=== PATIENT | male | born 1955 | race Caucasian/White ===

== ENCOUNTER → 2018-10-31 | Outpatient (CLI) | payer OTHER ==
[~2018-10-31] VITALS: Ht 177.8 cm; Wt 104.0 kg
[~2018-10-31] MED LIST: ANASPAZ0.125 MG SUBLING; BENADRYL25 MG PO; CEPACOL SORE T1 EAC2 PO; DEMEROL IV PUSH; HUMAN GROWTH HORMONE SUBQ; HYDROCODON-ACE1 EAC7 PO; ISOSORBIDE MONO20 MG PO; LOPERAMIDE 2 MG2 M1 PO; MEDROLDOSEPACK PO; METOPROLOL SUCC50 MG PO; NOHOMEMEDICATIONS; NORCO 5-325 TA1 EACH PO; ONDANSETRON HCL4 M2 PO; OXYCODONE HCL 55 MG PO; OXYCODONE HCL15 MG PO; OXYCODONE HCL5 MG PO; OXYCONTIN20 M1 PO; PAXIL10 MG PO; PERCOCET 10-321 EAC1 PO; PERCOCET 5-3251 EACH PO; POTASSIUM20 PO; PREDNISONE50 MG PO; PROTONIX 20 MG20 M1 PO; ROXICODONE5 M2 PO; SLOW-MAG64 MG PO; TESTOSTERON100 MG/ML IM; TPN ELECTROLYTE20 M1 IV; ULTRAM 50MG TAB50 MG PO; VANCOMYCIN HCL 11 G2 IVPB; ZOFRAN ODT4 MG PO; ZOFRAN ODT4 MG SUBLING; ZOFRAN4 MG; ZOFRAN4 MG PO
--- NOTE | ~2018-10-31 | HPC ---
[facility] [place] [address] [place] [address] PAIN MANAGEMENT CONSULTATION Name: JUNI SERNA [id number] Admission: 10/31/18 Attend Phys: Nico Oseguera MD Discharge: Date of : 53 Report #: [id number] THIS REPORT FOR: //name// CC: Alvino Vargas DO NO PCP Nico Oseguera DATE OF SERVICE: 10/31/2018 Followup visit for chronic pain and management of intrathecal infusion pump. The patient is here today for management of chronic pain. I have been tapering his oral opioids as we adjust his intrathecal infusion pump. He still has about a month left on his pump before refill and he is here today for renewal of his oral medications. He is doing well. He seems much clear headed, more positive and upbeat, grateful for his intrathecal pump, which has provided dramatic improvement in his pain and function. He has reduced his oxycodone to 5 mg 3 times a day for breakthrough pain. On some days he may be able to use less and we continue to encourage the lowest effective dose. He has chronic abdominal pain related to Crohn disease and short gut syndrome. He feeds himself 7 days a week with nocturnal TPN through a program established by the [facility]. PHYSICAL EXAMINATION: He is pleasant, alert and oriented. He shows me pictures of his grandchildren and his dog. He seems to be much more comfortable and relaxed. His blood pressure is 117/75, heart rate 78, respirations 16. Chest is clear. Cardiac rhythm is regular. He moves from sitting to standing position, ambulates without difficulty. There is tenderness across the abdomen. Pain intensity is a 6/10. IMPRESSION: 1. 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 Crohn disease. 2. Management of intrathecal infusion pump. 3. Management of oral medications under terms of written opioid agreement. PLAN: I renewed his medication for 1 month. He will remain on oxycodone 5 mg 3 times daily for breakthrough pain. His intrathecal pump infusion of morphine will continue with unchanged at today's visit. I plan to see him back for the [facility] [address] [place] [address] PAIN MANAGEMENT CONSULTATION Name: KAREEMJUNI SHAHZAD [facility] [id number] Admission: 10/31/18 Attend Phys: Nico Oseguera MD Discharge: Date of : 53 Report #: [id number] refill in November. I provided him with additional months of oral medication. Hopefully, we can continue to reduce by at least 30% at next visit. By: [id number] Nico Oseguera MD /nt
[2018-10-31 13:07] VITALS: BP 117/75
--- NOTE | 2018-10-31 13:09 | NUR ---
Pain Clinic Assessment: 1. History of Osteoarthritis: Not Applicable History of Rheumatoid Arthritis: Not Applicable 2. Height: 5 ft. 10 in. 177.8 cm. Weight: 229.2 lb. oz. 103.965 kg. Patient's BMI: 32.9 3. Vital Signs: BP: 117/75 Pulse: 78 Resp: 16 Temp: 02 Sat: 95 ECG Mon: 4. Pain Intensity: 6 5. Fall Risk: Dizziness: N Needs help standing or walking: N Fallen in the last 3 months: N Fall risk comments: 6. Patient on Blood Thinner: None 7. History of Hypertension: Y 8. Opioid Therapy greater than 6 weeks: Y Opiate Contract Signed: 9. Risk Assessment Tool Provided: 10. Functional Assessment Tool: 11. Recreational Drug Use: Never Drug Type: Tobacco Use: Never Smoker Tobacco Type: Amount or Packs/day: How Many Years: Alcohol Use: No Frequency: Quant:
== END ==
LOC: PAIN 07:18
DX: K50.90 Crohn's disease, unspecified, without complications (principal); Z97.8 Presence of other specified devices; Z79.891 Long term (current) use of opiate analgesic; Z79.899 Other long term (current) drug therapy

== ENCOUNTER → 2018-12-01 | Outpatient (CLI) | payer OTHER ==
[~2018-12-01] VITALS: Ht 177.8 cm; Wt 104.6 kg
[~2018-12-01] MED LIST changes: +DIPHENHYDR50 MG/1 M1 INJECTION; +FLOMAX0.4 MG PO; +ONDANSETRON4 MG/2 M1 IM; +ROXICODONE5 MG PO; +TIROSINT150 MCG PO
[2018-12-01 10:52] VITALS: BP 154/97
--- NOTE | 2018-12-01 11:10 | NUR ---
Pain Clinic Assessment: 1. History of Osteoarthritis: Not Applicable History of Rheumatoid Arthritis: Not Applicable 2. Height: 5 ft. 10 in. 177.8 cm. Weight: 230.6 lb. oz. 104.600 kg. Patient's BMI: 33.1 3. Vital Signs: BP: 154/97 Pulse: 94 Resp: 20 Temp: 02 Sat: 100 ECG Mon: 4. Pain Intensity: 4-5 5. Fall Risk: Dizziness: N Needs help standing or walking: N Fallen in the last 3 months: N Fall risk comments: 6. Patient on Blood Thinner: None 7. History of Hypertension: Y 8. Opioid Therapy greater than 6 weeks: Y Opiate Contract Signed: 9. Risk Assessment Tool Provided: LOW-0 10. Functional Assessment Tool: 39 11. Recreational Drug Use: Never Drug Type: Tobacco Use: Never Smoker Tobacco Type: Amount or Packs/day: How Many Years: Alcohol Use: No Frequency: Quant:
--- NOTE | 2018-12-12 07:40 | HPC ---
[facility] [place] [address] [place] [address] PAIN MANAGEMENT CONSULTATION Name: JUNI SERNA Room #: REG [facility] Loretta.#: [id number] Admission: 12/01/18 ������������������ Attend Phys: Nico Oseguera MD Discharge: ������������������ Date of : 53 Report #: [id number] THIS REPORT FOR: //name// CC: Alvino Oseguera DATE OF SERVICE: 12/01/2018 Followup visit for management of intrathecal infusion pump refill and reprogramming. Chronic abdominal pain. Crohn's disease. The patient returns today for refill and reprogram of his intrathecal infusion pump and renewal for his breakthrough oxycodone, which we continue to taper. He is down to 2-3 tablets per day. He has had a substantial reduction in systemic opioids from his intrathecal pump and more importantly, he is exceptionally functional and much happier with the pain control that he is receiving from the intrathecal therapy. He scores his pain as a 4-5/10, although it is constant, throbbing and stabbing. It is not nearly as bad. Medication does seem to help. The oral medication takes the edge off since he is like to get off as much as he can. We will continue to urge additional reductions. Because of his malabsorption syndrome, he is receiving TPN. He uses some IV medications including Benadryl and Zofran on a p.r.n. basis. He uses TPN 5 days weekly. He has an AICD in place. He has had no cardiac events. Denies use of tobacco or alcohol. He is in love with his new Puppies. This is a 63-year-old gentleman who has never had a dog and now is completely enthralled with his 2 Yorkie's, one weighing no more than 2 pounds, the other 4. 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 He has received some ribbing from his friends. He is hoping to continue play golf and he tries to walk daily. He is not a fall risk. He is on no blood thinning medications. He is on a written opioid agreement and we have checked on the prescription drug monitoring program. There are no unexpected entries. Drug testing has been performed intermittently and it will be done at my discretion going forward. PHYSICAL EXAMINATION: 154/97, heart rate 94, respirations 20. BMI 33.3. He is pleasant, outgoing and relaxed. Moves easily from sitting to standing position. Abdomen is nontender. Pump is in the right lower quadrant. There is no evidence of swelling or inflammation. IMPRESSION: 1. Chronic abdominal pain with short gut syndrome, status post multiple abdominal surgeries. History of Crohn's disease. [address] [address] PAIN MANAGEMENT CONSULTATION Name: JUNI SERNA Room #: REG [facility].#: [id number] Admission: 12/01/18 ������������������ Attend Phys: Nico Oseguera MD Discharge: ������������������ Date of : 53 Report #: [id number] 2. Management of intrathecal infusion pump with refill and reprogramming. 3. Management of opioid medications under terms of written agreement. PROCEDURE: Refill and reprogramming. Skin was prepped with ChloraPrep and anesthetized. A 22-gauge non-coring needle advanced in the pump. Old medication removed and discarded per protocol. Pump refilled with morphine 20 mg per mL and a reprogramming session performed 5 mg per day. He has a PTM device. We will allow it to provide some additional dosing, increasing his daily dose by about 33%. His next refill is scheduled before 03/22/2019, although it may be a bit longer based upon his use of PTM. We reviewed the importance of safeguarding all medications. He will carefully monitor his use, make sure that the medications do not get out of his sight. He is on oxycodone 5 mg 1-3 tablets a day as needed for breakthrough pain. He is averaging just a little less than 3 tablets per day. Followup visit planned in March. ��������������������������������������������� <ELECTRONICALLY SIGNED> ���������������������������������������� By: Nico Oseguera MD ��������������������������������������������� 12/12/18 0740 1253 [id number] Nico Oseguera MD /nt
== END | disposition home or self-care (01) ==
LOC: PAIN 06:49
DX: Z45.1 Encounter for adjustment and management of infusion pump (principal); G89.29 Other chronic pain; R10.9 Unspecified abdominal pain; K91.2 Postsurgical malabsorption, not elsewhere classified; K50.90 Crohn's disease, unspecified, without complications; Z98.890 Other specified postprocedural states; Z79.891 Long term (current) use of opiate analgesic; Z87.19 Personal history of other diseases of the digestive system; Z88.8 Allergy status to other drugs, medicaments and biological substances

== ENCOUNTER → 2019-01-30 | Outpatient (CLI) | payer OTHER ==
[~2019-01-30] VITALS: Ht 177.8 cm; Wt 104.4 kg
[2019-01-30 12:25] VITALS: BP 145/88
--- NOTE | 2019-01-30 12:32 | NUR ---
Pain Clinic Assessment: 1. History of Osteoarthritis: Not Applicable History of Rheumatoid Arthritis: Not Applicable 2. Height: 5 ft. 10 in. 177.8 cm. Weight: 230.2 lb. oz. 104.418 kg. Patient's BMI: 33.0 3. Vital Signs: BP: 145/88 Pulse: 89 Resp: 14 Temp: 02 Sat: 94 ECG Mon: 4. Pain Intensity: 6 5. Fall Risk: Dizziness: N Needs help standing or walking: N Fallen in the last 3 months: N Fall risk comments: 6. Patient on Blood Thinner: None 7. History of Hypertension: Y 8. Opioid Therapy greater than 6 weeks: Y Opiate Contract Signed: 9. Risk Assessment Tool Provided: LOW-0 10. Functional Assessment Tool: 39/ 11. Recreational Drug Use: Never Drug Type: Tobacco Use: Never Smoker Tobacco Type: Amount or Packs/day: How Many Years: Alcohol Use: No Frequency: Quant:
--- NOTE | 2019-02-02 12:23 | HPC ---
[facility] [address] [address] PAIN MANAGEMENT CONSULTATION Name: JUNI SERNA Room #: REG JA[facility]ELIN Loretta.#: [id number] Admission: 01/30/19 ������������������ Attend Phys: Nico Oseguera MD Discharge: ������������������ Date of : 53 Report #: [id number] THIS REPORT FOR: //name// CC: Alvino Oseguera DATE OF SERVICE: 01/30/2019 SUBJECTIVE: Followup visit for chronic intractable abdominal pain with Crohn disease. The patient returns to clinic today in followup. He had lost prescription in December. He filed a police report as requested. We have canceled that prescription and issued a new prescription. He continues to taper his oxycodone, so there may be a point in time where we do not need to worry about this. Seems to be getting along okay. At last visit, he was enthralled with his new puppies. Today, he is not so happy with them. They tore up things in the bedroom and left alone! Pump continues to function well for him. He does not need a refill at this time. His reduction in oxycodone has been stepwise and today he is ready to make another reduction. On a good day, he will be able to reduce his medicine to 1-2 tablets. On a bad day, he can take up to 3. I am going to provide him instead of 95, 75 oxycodone 5 mg tablets. Hopefully, we will continue to avoid withdrawal by this gradual and gentle tapering. PQRS: He is 5 feet 10 with a BMI of 33.0. PHYSICAL EXAMINATION: GENERAL: Affect is pleasant, a little anxious today. He has recently been very upbeat. I did not see so much of that during his visit, seems a bit more troubled. VITAL SIGNS: His blood pressure is 145/88, heart rate 89, oxygen saturation 94. Pain intensity 6/10. MUSCULOSKELETAL: Moves easily from sitting to standing position without antalgic features. He is not a fall risk. He has mild tenderness throughout his abdomen. Scored his pain with palpation as a 6-8. He is under treatment for hypertension from his primary care physician and all medications are reviewed and reconciled. He is at low risk for addiction per the ORT. He denies use of tobacco and alcohol. IMPRESSION: 1. Chronic abdominal pain. [facility] [address] [place] [address] PAIN MANAGEMENT CONSULTATION Name: JUNI SERNA Room #: [facility] [id number] Admission: 01/30/19 ������������������ Attend Phys: Nico Oseguera MD Discharge: ������������������ Date of : 53 Report #: [id number] 2. Management of intrathecal infusion pump. 3. Refill is in 1-2 months. 4. Management of high risk medications under terms of an opioid written agreement. Medications renewed for oxycodone 5/325 one tablet t.i.d. ��������������������������������������������� <ELECTRONICALLY SIGNED> ���������������������������������������� By: Nico Oseguera MD ��������������������������������������������� 02/02/19 1223 1341 1401 Nico Oseguera MD /sarah
== END ==
LOC: PAIN 07:11
DX: G89.29 Other chronic pain (principal); R10.9 Unspecified abdominal pain; K50.90 Crohn's disease, unspecified, without complications; I10 Essential (primary) hypertension; Z79.891 Long term (current) use of opiate analgesic; Z79.899 Other long term (current) drug therapy

== ENCOUNTER → 2019-03-16 | Outpatient (CLI) | payer OTHER ==
[~2019-03-16] VITALS: Ht 177.8 cm; Wt 105.3 kg
--- NOTE | ~2019-03-16 | HPC ---
[facility] [place] [address] PAIN MANAGEMENT CONSULTATION Name: JUNI SERNA Room #: REG [facility] [place].#: [id number] Admission: 03/16/19 ������������������ Attend Phys: Nico Oseguera MD Discharge: ������������������ Date of : 53 Report #: [id number] THIS REPORT FOR: //name// CC: Alvino Vargas DO Nico Oseguera DATE OF SERVICE: 03/16/2019 Followup visit for management of intrathecal infusion pump. The patient returns to the pain clinic today and is having increasing abdominal pain. Pain is located in the midline and below the sternum. He has chronic abdominal pain typically with his Crohn's, but this is worse. He has followed up with his team in [place]. We discussed upcoming diagnostic tests, which include upper GI and colonoscopy. He has gained about 20 pounds over the course of the last year. His weight now is about 230. His intrathecal pump is infusing morphine. We will continue at the same dose today. PHYSICAL EXAMINATION: GENERAL: He is anxious today. The anxiety that I noticed at last visit seems to have worsened a bit. VITAL SIGNS: His blood pressure is 153/99, heart rate 99, respirations 16 and O2 sat 95%. CHEST: Clear. CARDIAC: Rhythm is regular. ABDOMEN: Tender. Pump is in the right lower quadrant. MUSCULOSKELETAL: He moves from sitting to standing position, walks with stable gait. Does not appear to be a fall risk. IMPRESSION: 1. Chronic intractable abdominal pain with Crohn's. 2. Management of intrathecal infusion pump. 3. Management of oral medications under terms of written opioid agreement. He is grateful for the additional medication benefit that he receives from his medications helping to slow his gut and also denies side effects. He safeguards his medications carefully and is in a much lower dose than when we initiated intrathecal therapy. PROCEDURE: Skin was prepped with ChloraPrep. Skin anesthetized and a 22-gauge non-coring needle advanced in the pump. Old medication removed and discarded. Pump refilled with morphine 20 mg per mL. Reprogramming session performed [address] [address] PAIN MANAGEMENT CONSULTATION Name: JUNI SERNA Room #: REG JAQUELIN Chamberlain#: [id number] Admission: 03/16/19 ������������������ Attend Phys: Nico Oseguera MD Discharge: ������������������ Date of : 53 Report #: [id number] providing 5 mg of morphine per day through the intrathecal pump. Next refill is scheduled for 07/05/2019. He was given a prescription for breakthrough oxycodone 5 mg, #75 tablets, he uses about 2 to 3 tablets a day at the most; 75 tablets typically will last him a bit longer than one month. Followup visit planned in May. ��������������������������������������������� ���������������������������������������� By: ��������������������������������������������� 1837 1314 Nico Oseguera MD /nt
[2019-03-16 12:53] VITALS: BP 153/99
--- NOTE | 2019-03-16 13:15 | NUR ---
Pain Clinic Assessment: 1. History of Osteoarthritis: Not Applicable History of Rheumatoid Arthritis: Not Applicable 2. Height: 5 ft. 10 in. 177.8 cm. Weight: 232.2 lb. oz. 105.325 kg. Patient's BMI: 33.3 3. Vital Signs: BP: 153/99 Pulse: 91 Resp: 16 Temp: 02 Sat: 95 ECG Mon: 4. Pain Intensity: 6 5. Fall Risk: Dizziness: N Needs help standing or walking: N Fallen in the last 3 months: N Fall risk comments: 6. Patient on Blood Thinner: None 7. History of Hypertension: Y 8. Opioid Therapy greater than 6 weeks: Y Opiate Contract Signed: 9. Risk Assessment Tool Provided: LOW-0 10. Functional Assessment Tool: 39/ 11. Recreational Drug Use: Never Drug Type: Tobacco Use: Never Smoker Tobacco Type: Amount or Packs/day: How Many Years: Alcohol Use: No Frequency: Quant:
== END | disposition home or self-care (01) ==
LOC: PAIN 06:57
DX: Z45.1 Encounter for adjustment and management of infusion pump (principal); G89.29 Other chronic pain; K50.90 Crohn's disease, unspecified, without complications; Z88.8 Allergy status to other drugs, medicaments and biological substances; Z79.899 Other long term (current) drug therapy

== ENCOUNTER → 2019-05-11 | Outpatient (CLI) | payer OTHER ==
[~2019-05-11] VITALS: Ht 177.8 cm; Wt 106.5 kg
[~2019-05-11] MED LIST changes: +CARAFATE 1 GM TA1 G1 PO
[2019-05-11 08:35] VITALS: BP 136/91
--- NOTE | 2019-05-11 08:42 | NUR ---
Pain Clinic Assessment: 1. History of Osteoarthritis: Not Applicable History of Rheumatoid Arthritis: Not Applicable 2. Height: 5 ft. 10 in. 177.8 cm. Weight: 234.8 lb. oz. 106.505 kg. Patient's BMI: 33.7 3. Vital Signs: BP: 136/91 Pulse: 97 Resp: 16 Temp: 02 Sat: 97 ECG Mon: 4. Pain Intensity: 3 5. Fall Risk: Dizziness: N Needs help standing or walking: N Fallen in the last 3 months: N Fall risk comments: 6. Patient on Blood Thinner: None 7. History of Hypertension: Y 8. Opioid Therapy greater than 6 weeks: Y Opiate Contract Signed: 9. Risk Assessment Tool Provided: LOW-0 10. Functional Assessment Tool: 39/ 11. Recreational Drug Use: Never Drug Type: Tobacco Use: Never Smoker Tobacco Type: Amount or Packs/day: How Many Years: Alcohol Use: No Frequency: Quant:
--- NOTE | 2019-05-16 07:48 | HPC ---
[facility] [place] [address] PAIN MANAGEMENT CONSULTATION Name: JUNI SERNA Room #: REG [facility] Bulmaro#: [id number] Admission: 05/11/19 ������������������ Attend Phys: Ila Gutiérrez Discharge: ������������������ Date of : 53 Report #: [id number] THIS REPORT FOR: //name// CC: Ila Carcamo DATE OF SERVICE: 05/11/2019 CHIEF COMPLAINT: Chronic abdominal pain related to his Crohn's disease, management of his intrathecal infusion pump. HISTORY OF PRESENT ILLNESS: This is a very pleasant 64-year-old gentleman who returns to the pain clinic today for an adjustment in his intrathecal pump medications. The patient is requesting an increase in his intrathecal pump and a decrease in his oral pain medications. He tells me he is trying to get off his oxycodone 5 mg tablets. He reports a pain score today of a 3/10 in his right abdominal area. It is a deep, sharp pain that is fairly constant. The medications in his intrathecal pump are very beneficial. The patient is requesting to decrease his breakthrough pain medicine to one tablet a day. He tells me he is also having some problems with his PTM that he uses for his breakthrough pain medicines by his intrathecal pump and wondering if we could look at that as well today. The patient tells me he is having some problems with constipation and diarrhea related to his Crohn's disease. He is going to have a colonoscopy and EGD next week. He also does continue on his TPN that he infuses at home. Dr. Oseguera does provide him with some Benadryl for that period of time when he is having his infusion as well. CURRENT ALLERGIES: TRAMADOL, LORAZEPAM, COMPAZINE, CODEINE, NAPROXEN, ____, FENTANYL, PROMETHAZINE, TORADOL, CLAFORAN AND LEVAQUIN. CURRENT MEDICATIONS: Carafate b.i.d., oxycodone 5 mg t.i.d. p.r.n., Flomax 0.4 daily, levothyroxine, Zofran p.r.n., vancomycin daily, Benadryl at bedtime IV, isosorbide 20 mg daily, metoprolol 50 mg daily. PHYSICAL EXAMINATION: GENERAL: This is a well-developed, well-nourished 64-year-old gentleman who appears his stated age, slightly anxious today. He is is upbeat today in his affect. CHEST: Clear. ABDOMEN: Tender. He does have a pump in his lower right quadrant of his abdomen. MUSCULOSKELETAL: Moves from sitting to standing without any difficulty. [place] [address] PAIN MANAGEMENT CONSULTATION Name: KAREEMJUNI ALMONTEL Room #: REG JAQUELIN Chamberlain#: [id number] Admission: 05/11/19 ������������������ Attend Phys: Ila Gutiérrez Discharge: ������������������ Date of : 53 Report #: [id number] IMPRESSION: 1. Chronic intractable abdominal pain with Crohn's. 2. Management of intrathecal infusion pump. 3. Management of oral medications under terms of written opioid agreement. PLAN: 1. We interrogated his intrathecal pump today and increased his medication 10% of his morphine 20 mg concentration from 5 mg a day to 5.5 mg per day, this was again 10% increase. We also altered his PTM slightly. He is allowed 6 doses in a 24-hour period of 0.3 mg per dose. His new alarm date with maximum PTM activations would be 07/10/19. 2. The patient requests to decrease his breakthrough pain pills from an amount of 75 pills in a month to 30. He tells me he is trying to wean off all of his oral opioids. I expressed concern to him that, that is a big decrease and I do not want him to go through withdrawal. I offered 45 pills for the first month and 30 for the second release of medications, but patient is requesting 30 pills max. Again, I questioned him and told him I was reluctant to do this, but scripts were written for oxycodone 5 mg, #30 for release today and for a week. 3. Dr. Oseguera was present for part of this discussion and also informed the patient that he may have difficulty decreasing this much in a short amount of period and was instructed to call us if he did experience any withdrawal symptoms. The patient verbalizes understanding. 4. The patient will call as needed. Otherwise, he will return for his pump refill in early to mid July. ��������������������������������������������� <ELECTRONICALLY SIGNED> ���������������������������������������� By: Ila Gutiérrez ��������������������������������������������� 05/16/19 0748 1119 0232 Ila Gutiérrez /sarah
== END | disposition home or self-care (01) ==
LOC: PAIN 06:39
DX: Z45.1 Encounter for adjustment and management of infusion pump (principal); K50.90 Crohn's disease, unspecified, without complications; R10.9 Unspecified abdominal pain; G89.29 Other chronic pain; Z79.891 Long term (current) use of opiate analgesic; Z79.899 Other long term (current) drug therapy; Z88.8 Allergy status to other drugs, medicaments and biological substances; Z98.890 Other specified postprocedural states

== ENCOUNTER → 2019-06-19 | Outpatient (CLI) | payer OTHER ==
[~2019-06-19] VITALS: Ht 177.8 cm; Wt 105.6 kg
--- NOTE | ~2019-06-19 | HPC ---
[facility] [place] [address] PAIN MANAGEMENT CONSULTATION Name: JUNI SERNA [id number] Admission: 06/19/19 ������������������ Attend Phys: Nioc Oseguera MD Discharge: ������������������ Date of : 53 Report #: [id number] THIS REPORT FOR: //name// CC: Isreal Oseguera DATE OF SERVICE: 06/19/2019 REASON FOR VISIT: Followup visit for management of intrathecal infusion pump. SUBJECTIVE: The patient is here today for an adjustment of his intrathecal infusion pump and also to discuss oral medication. We have dramatically reduced his previous reliance on opioids, but he still takes some medication under the terms of written agreement. We have just sought out the lowest effective dose by tapering his oral medication while increasing his intrathecal pump. Today, he reports pain has increased and he has been unable to use his PTM device. I re-established it, allowing him an increase of up to 48.7% with 6 activations a day. His daily baseline will be morphine 6.0, a 9% increase in addition to the additional increase of the PTM up to a maximum of 9 mg a day. We agreed to continue oxycodone 5 mg tablets for breakthrough. He is allowed 2 tablets a day for an MME of 12.5. He needs to receive TPN through the protocol established ____ PQRS REVIEW: 1. 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 2. BMI of 33.4. 3. Vital signs 168/97, heart rate 89, O2 sat 100%. 4. The pain is 4/10 at baseline, increasing to 8/10 with episodic severe spells. 5. He is not at fall risk. 6. No blood thinning medications. 7. He has a history of chronic hypertension and is under treatment. We reviewed all medications including metoprolol, isosorbide. 8. He is on an opioid agreement, signed ____. 9. He has completed is an opioid risk tool, which he scores as a 0. 10. Functional assessment score is 39/70. 11. He denies using tobacco and alcohol. PHYSICAL EXAMINATION: GENERAL APPEARANCE: He is a pleasant gentleman in no acute distress. HEENT: Reveals mucous membranes to be dry. Pupils are equal, round, and react to light. [address] [address] PAIN MANAGEMENT CONSULTATION Name: JUNI SERNA Room #: REG [facility].#: [id number] Admission: 06/19/19 ������������������ Attend Phys: Nico Oseguera MD Discharge: ������������������ Date of : 53 Report #: [id number] NECK: Supple. CHEST: Clear. CARDIAC: Regular rhythm without murmur. ABDOMEN: The pump is in the right lower quadrant, nontender. MUSCULOSKELETAL: Positive for shoulder and knee pain. This is modest. Strength is 5+/5 in all extremities. IMPRESSION: 1. Chronic intractable pain syndrome. 2. Crohn's disease. 3. Diffuse arthropathy as well as abdominal pain. 4. Management of oral medications under terms with written agreement. 5. Intrathecal pump with reprogramming today. The intrathecal pump was reprogrammed, copy of the information was provided to the patient. His next followup visit is scheduled for July for refill. I have refilled his opioid medications per the terms of our written agreement. He is grateful for the pain relief and improvement that it provides. He understands the importance of safeguarding required. He lost his medications. He denies side effects at this time. ��������������������������������������������� ���������������������������������������� By: ��������������������������������������������� [id number] Nico Oseguera MD /nt
[2019-06-19 15:13] VITALS: BP 168/97
--- NOTE | 2019-06-19 16:22 | NUR ---
Pain Clinic Assessment: 1. History of Osteoarthritis: Not Applicable History of Rheumatoid Arthritis: Not Applicable 2. Height: 5 ft. 10 in. 177.8 cm. Weight: 232.8 lb. oz. 105.598 kg. Patient's BMI: 33.4 3. Vital Signs: BP: 168/97 Pulse: 89 Resp: 16 Temp: 02 Sat: 100 ECG Mon: 4. Pain Intensity: 4 5. Fall Risk: Dizziness: N Needs help standing or walking: N Fallen in the last 3 months: N Fall risk comments: 6. Patient on Blood Thinner: None 7. History of Hypertension: Y 8. Opioid Therapy greater than 6 weeks: Y Opiate Contract Signed: 9. Risk Assessment Tool Provided: LOW-0 10. Functional Assessment Tool: 39/ 11. Recreational Drug Use: Never Drug Type: Tobacco Use: Never Smoker Tobacco Type: Amount or Packs/day: How Many Years: Alcohol Use: No Frequency: Quant:
== END ==
LOC: PAIN 06:56
DX: G89.4 Chronic pain syndrome (principal); K50.90 Crohn's disease, unspecified, without complications; R10.9 Unspecified abdominal pain

== ENCOUNTER → 2019-07-10 | Outpatient (CLI) | payer OTHER ==
[~2019-07-10] VITALS: Ht 177.8 cm; Wt 104.4 kg
[2019-07-10 09:14] VITALS: BP 129/83
--- NOTE | 2019-07-10 09:25 | NUR ---
Pain Clinic Assessment: 1. History of Osteoarthritis: Not Applicable History of Rheumatoid Arthritis: Not Applicable 2. Height: 5 ft. 10 in. 177.8 cm. Weight: 230.2 lb. oz. 104.418 kg. Patient's BMI: 33.0 3. Vital Signs: BP: 129/83 Pulse: 85 Resp: 16 Temp: 02 Sat: 97 ECG Mon: 4. Pain Intensity: 4 5. Fall Risk: Dizziness: N Needs help standing or walking: N Fallen in the last 3 months: N Fall risk comments: 6. Patient on Blood Thinner: None 7. History of Hypertension: Y 8. Opioid Therapy greater than 6 weeks: Y Opiate Contract Signed: 9. Risk Assessment Tool Provided: LOW-0 10. Functional Assessment Tool: 39/ 11. Recreational Drug Use: Never Drug Type: Tobacco Use: Never Smoker Tobacco Type: Amount or Packs/day: How Many Years: Alcohol Use: No Frequency: Quant:
--- NOTE | 2019-07-20 16:52 | HPC ---
[facility] [place] [address] PAIN MANAGEMENT CONSULTATION Name: JUNI SERNA [facility] [id number] Admission: 07/10/19 Attend Phys: Nico Oseguera MD Discharge: Date of : 53 Report #: [id number] THIS REPORT FOR: //name// CC: JINNY Oseguera DATE OF SERVICE: 07/10/2019 Followup visit for chronic pain and refill of intrathecal infusion pump. The patient returns to pain clinic today for refill of his intrathecal pump. He was seen just 3 weeks ago for renewal of his oral medications. See that dictation for discussion of his medication. He takes oxycodone for breakthrough, now down to just 2 tablets or an MME of 12.5. He has had substantial reductions in his requirements for oral opioids since we have placed the intrathecal pump. He is doing well. Please review the PQRS review from that visit. PHYSICAL EXAMINATION: GENERAL: Pleasant gentleman in no acute distress at this time. VITAL SIGNS: His blood pressure 129/83, heart rate 85, respirations 16, O2 sat 97. He is 5 feet 10 inches, 230 pounds, BMI of 30.0. Pain intensity 4/10. Moves independently from sitting to standing position, ambulates without difficulty. ABDOMEN: His pump is in the right lower quadrant, nontender. IMPRESSION: 1. Chronic intractable abdominal pain with history of multiple abdominal surgeries and Crohn's disease. 2. Management of intrathecal pump with refill and reprogramming. PROCEDURE: Refill and reprogramming. DESCRIPTION OF PROCEDURE: After informed consent, he was placed in the supine position. Skin prepped with ChloraPrep and 22-gauge non-coring needle advanced in the pump on the first attempt. Old medication was removed and discarded per protocol. Pump was refilled with morphine 20 mg per mL and reprogramming. His current daily dose is 6.06 mg per day. He has 63 months remaining on his pump. Estimated replacement date and his next refill is scheduled in the clinic for 10/02/2019. Daily dose supplemented by a PTM which will allow to increase to a maximum of 9 mg a day. [address] [address] PAIN MANAGEMENT CONSULTATION Name: KAREEMJUNI PIKE [facility] [id number] Admission: 07/10/19 Attend Phys: Nico Oseguera MD Discharge: Date of : 53 Report #: [id number] Followup visit planned in September for pump refill. <ELECTRONICALLY SIGNED> By: Nico Oseguera MD 07/20/19 1652 [id number] [id number] Nico Oseguera MD /nt
== END | disposition home or self-care (01) ==
LOC: PAIN 07-05 09:53
DX: Z45.1 Encounter for adjustment and management of infusion pump (principal); G89.29 Other chronic pain; R10.9 Unspecified abdominal pain; Z98.890 Other specified postprocedural states; K50.90 Crohn's disease, unspecified, without complications; Z79.891 Long term (current) use of opiate analgesic

== ENCOUNTER → 2019-08-14 | Outpatient (CLI) | payer OTHER ==
[~2019-08-14] VITALS: Ht 177.8 cm; Wt 102.2 kg
[2019-08-14 10:10] VITALS: BP 130/65
--- NOTE | 2019-08-14 10:19 | NUR ---
Pain Clinic Assessment: 1. History of Osteoarthritis: Not Applicable History of Rheumatoid Arthritis: Not Applicable 2. Height: 5 ft. 10 in. 177.8 cm. Weight: 225.2 lb. oz. 102.150 kg. Patient's BMI: 32.3 3. Vital Signs: BP: 130/65 Pulse: 109 Resp: 20 Temp: 02 Sat: 96 ECG Mon: 4. Pain Intensity: 2 5. Fall Risk: Dizziness: N Needs help standing or walking: N Fallen in the last 3 months: N Fall risk comments: 6. Patient on Blood Thinner: None 7. History of Hypertension: Y 8. Opioid Therapy greater than 6 weeks: Y Opiate Contract Signed: 9. Risk Assessment Tool Provided: LOW-0 10. Functional Assessment Tool: 39/ 11. Recreational Drug Use: Never Drug Type: Tobacco Use: Never Smoker Tobacco Type: Amount or Packs/day: How Many Years: Alcohol Use: No Frequency: Quant:
--- NOTE | 2019-08-15 15:17 | HPC ---
[facility] [place] [address] PAIN MANAGEMENT CONSULTATION Name: JUNI SERNA [id number] Admission: 08/14/19 Attend Phys: Ila Gutiérrez Discharge: Date of : 53 Report #: [id number] THIS REPORT FOR: //name// CC: Ila Jensen MD DATE OF SERVICE: 08/14/2019 CHIEF COMPLAINT: Chronic abdominal pain related to Crohn's disease and management of his intrathecal infusion pump. HISTORY OF PRESENT ILLNESS: This is a very pleasant 64-year-old gentleman who returns to the pain clinic today for a refill of his medications that he uses to assist in helping his chronic abdominal pain related to Crohn's as well as his intrathecal pump. He reports a pain score of 2/10 today. He has sharp abdominal pain, mostly on his right lower quadrant. It is increased with activity. His medication and rest as well as his intrathecal pump are very beneficial. He denies any problems with daytime somnolence. He would like refills of his oxycodone today. He does take 2 tablets, which is a morphine milliequivalent of 15 MME per day. ALLERGIES: TRAMADOL, ATIVAN, COMPAZINE, CODEINE, NAPROXEN, FENTANYL, PROMETHAZINE, KETOROLAC, CLAFORAN and LEVAQUIN. MEDICATIONS: Oxycodone 5 mg b.i.d., Carafate b.i.d., Flomax daily, levothyroxine daily, vancomycin daily, Benadryl daily, isosorbide 20 mg daily, and metoprolol 50 mg daily. PQRS: 1. He has a history of joint pain, especially in his knees. Denies rheumatoid arthritis. 2. Height is 5 feet 10 inches, weight is 225. BMI is 32. 3. Vital signs 130/64, pulse is 109, respirations 20, and oxygen sat is 96. 4. Pain score is 2/10. 5. Denies dizziness, does not need help walking or standing, has not fallen in the last 3 months. 6. The patient is not on any blood thinner, but does take medicines for hypertension. 7. Opioid therapy is greater than 6 weeks; therefore, an opioid signed contract is on the chart. Risk assessment tool is low. Functional assessment is 39/70. 8. Recreational drug use, he denies. He is not a smoker and does not drink alcohol. According to the prescription monitoring system, the patient is filling [address] [address] PAIN MANAGEMENT CONSULTATION Name: JUNI SERNA Room #: REG [facility]#: [id number] Admission: 08/14/19 Attend Phys: Ila Gutiérrez Discharge: Date of : 53 Report #: [id number] appropriately for his medications and is due for those to be filled today. PHYSICAL EXAMINATION: GENERAL: This is a 64-year-old pleasant gentleman who appears his stated age, placing his current pain score today at 2/10. HEENT: Normocephalic, atraumatic. Extraocular eye muscles are intact. ABDOMEN: He has an intrathecal pump in his right lower quadrant and is nontender. He also complains of lower right abdominal pain. MUSCULOSKELETAL: He moves independently from the seated to standing position. He ambulates without difficulty. Does have bilateral knee pain. Strength is 5/5 in all extremities. IMPRESSION: 1. Chronic intractable pain syndrome. 2. Crohn's disease. 3. Diffuse arthropathy as well as abdominal pain, management of oral medications under terms of written opioid agreement, management of intrathecal pump. We reviewed the fact that opiate medications are being used to provide analgesia adequate to support activities of daily living, not attempting to achieve a specific pain score on the 0-10 Visual Analog Scale. The current opiate medications are providing sufficient analgesia to allow the patient to participate in activities of daily living. The patient is not exhibiting any aberrant behavior suggestive of drug diversion. The patient is not having any adverse reactions to medications. The patient is not suffering from daytime somnolence or mental acuity changes. The patient is managing opiate-induced constipation with appropriate [id number]-eym-[id number] agents and dietary considerations. The patient was counseled on concern for caution with operating a motor vehicle while using opiate medications. A physical exam was performed and the patient's functional status was evaluated. All patients with back pain were advised against the bed rest greater than 4 days and were advised to return to normal activities. Pain score assessment was noted and the treatment plan was reviewed with the patient. All current medications, both prescribed and OTC were reviewed and reconciled on the electronic medical record. Tobacco screening was accomplished and smoking cessation was advised when indicated. BMI was noted and diet/exercise modification was recommended for all patients following outside normal parameters. I reviewed with the patient today their responsibilities to safeguard prescription medications, reviewed their responsibility to utilize medications only as prescribed by the physician. They are to seek and receive pain medications only from 1 physician group ([facility]). They are to use 1 pharmacy and keep the clinic informed if they change pharmacies. Their [address] [address] PAIN MANAGEMENT CONSULTATION Name: JUNI SERNA Room #: REG [facility]#: [id number] Admission: 08/14/19 Attend Phys: Ila Gutiérrez Discharge: Date of : 53 Report #: [id number] responsibilities include making followup visits in a timely fashion and to avoid abrupt discontinuation of medication usage. Their responsibilities further include bringing their medications (bottles from the pharmacy with residual pills) to the visit for possible confirmation of pill counts and the patient understands it is their responsibility to submit to random drug screens to ensure both that the medications prescribed are present, and that no other controlled substances are present. All prescriptions provided today were generated electronically. RECOMMENDATIONS: 1. The patient feels that his current pain medications are helpful as well as his intrathecal pump. He uses his PTM though not as max of 6 a day. He states most days he requires less than that of his PTM that he does find it beneficial as well as oral pain pills. 2. Scripts given today for oxycodone 5 mg, #60 for today and 4-week release. 3. We did interrogate his intrathecal pump just to find out his alarm date since he did not have his PTM with him. We will schedule an appointment for 10/09/2019 for his intrathecal pump refill with Dr. Nico Oseguera. 4. The patient is seen in collaboration with Dr. Nico Oseguera. The patient will return on 10/09/2019. <ELECTRONICALLY SIGNED> By: Ila Gutiérrez 08/15/19 1517 1251 0000 Ila Gutiérrez /nt
== END ==
LOC: PAIN 06:50
DX: G89.4 Chronic pain syndrome (principal); K50.90 Crohn's disease, unspecified, without complications

== ENCOUNTER → 2019-10-09 | Outpatient (CLI) | payer OTHER ==
[~2019-10-09] VITALS: Ht 177.8 cm; Wt 104.4 kg
--- NOTE | ~2019-10-09 | HPC ---
[facility] [address] [place] [address] PAIN MANAGEMENT CONSULTATION Name: JUNI SERNA Room #: REG [facility] [id number] Admission: 10/09/19 Attend Phys: Nico Oseguera MD Discharge: Date of : 53 Report #: [id number] THIS REPORT FOR: //name// CC: Isreal Oseguera DATE OF SERVICE: 10/09/2019 Followup visit for chronic abdominal pain related to Crohn's disease and short gut syndrome. The patient returns to pain clinic today for refill of his intrathecal infusion pump. He has done very well on intrathecal opioids and has dramatically reduced his reliance on systemic opioids. At his last visit in August, he had hoped that he can completely go off of all oral opioids. He found that it was not so easy to give up even the small amount that he uses to supplement his intrathecal pump. I have agreed to continue him on a small amount of medication that he uses cautiously and carefully to control his pain. If he does not sleep well or function as well when his pain is aggravated. A 5 mg of hydrocodone taken once or twice a day seems to help along with his intrathecal pump and infusion of morphine. He is a retired [employer]. He still is active. He tells me that he is actually going to jump out of an airplane, again having done over 1000 jumps. He apparently has some sort of [employer] reunion and he hopes to do so. From a musculoskeletal standpoint, I believe is able to accomplish that. His only new complaint today is pain underneath the right ribcage. The pump appears to be impinging upon the lowest rib. If he loses some weight, we discussed that might be an option for treatment of that. Otherwise, surgical repositioning of the pump seems to be a bit aggressive. PQRS review is completed. He does have some joint pain, but no significant degenerative osteoarthritis at this point. BMI is 33. His blood pressure is 125/84, heart rate 87. Pain score is 4/10. He is not a fall risk. He is on no blood thinners and does have hypertension, but is treated medically and followed by his primary care physician. I reviewed all his medications. He is taking metoprolol and isosorbide. He has completed an opioid risk tool and does not appear to be at significant risk of addiction. We have not seen it in our assessments. His functional assessment score was completed once again today and is 39. He is on an opioid agreement. I have checked all his use of medications on the prescription drug monitoring program. There are no unexpected entries. He denies use of both tobacco and alcohol. He does not use marijuana. PHYSICAL EXAMINATION: He is pleasant, alert and oriented. Blood pressure and vital signs are as noted. Pump is in the right lower quadrant and it does [facility] [address] [place] [address] PAIN MANAGEMENT CONSULTATION Name: JUNI SERNA Room #: REG [facility]#: [id number] Admission: 10/09/19 Attend Phys: Nico Oseguera MD Discharge: Date of : 53 Report #: [id number] indeed impinge upon the lower rib anteriorly. It is locally tender, but there is no redness or inflammation. He is able to independently move from sitting to standing position, ambulates without difficulty. Her scars in his abdomen from previous surgeries. ABDOMEN: Tender. IMPRESSION: 1. Chronic intractable pain syndrome with primary abdominal pain. He has a short gut syndrome. 2. Crohn's disease. 3. He has malabsorption issues and has a permanent central catheter for treatment with supplements through a program at the [facility] where he is followed her for intrathecal pump. PROCEDURE: Refill and reprogramming intrathecal infusion pump. PROCEDURE DETAIL: Skin was prepped with ChloraPrep and a 22-gauge non-coring needle advanced in the pump. Old medication removed and discarded per protocol. He had quite a bit of medication in his pump due to his lack of use of his PTM device. I reduced the PTM from 6 to 4. The pump was refilled and reprogrammed. He will be receiving an average daily dose by continuous infusion of 6 mg of morphine. He may be able to increase it now by 24% of 7.5 with PTM. Next refill is scheduled for January. Prescriptions were provided for him electronically for his oxycodone and sent for the next month or two. We will follow up as necessary. By: [id number] Nico Oseguera MD /nt
[2019-10-09 09:18] VITALS: BP 125/84
--- NOTE | 2019-10-09 09:47 | NUR ---
Pain Clinic Assessment: 1. History of Osteoarthritis: Not Applicable History of Rheumatoid Arthritis: Not Applicable 2. Height: 5 ft. 10 in. 177.8 cm. Weight: 230.2 lb. oz. 104.418 kg. Patient's BMI: 33.0 3. Vital Signs: BP: 125/84 Pulse: 87 Resp: 16 Temp: 02 Sat: 97 ECG Mon: 4. Pain Intensity: 4 TODAY 5. Fall Risk: Dizziness: N Needs help standing or walking: N Fallen in the last 3 months: N Fall risk comments: 6. Patient on Blood Thinner: None 7. History of Hypertension: Y 8. Opioid Therapy greater than 6 weeks: Y Opiate Contract Signed: 9. Risk Assessment Tool Provided: LOW-0 10. Functional Assessment Tool: 39/ 11. Recreational Drug Use: Never Drug Type: Tobacco Use: Never Smoker Tobacco Type: Amount or Packs/day: How Many Years: Alcohol Use: No Frequency: Quant:
== END | disposition home or self-care (01) ==
LOC: PAIN 06:29
DX: Z45.1 Encounter for adjustment and management of infusion pump (principal); G89.4 Chronic pain syndrome; K50.90 Crohn's disease, unspecified, without complications; K91.2 Postsurgical malabsorption, not elsewhere classified; R10.9 Unspecified abdominal pain; Z98.890 Other specified postprocedural states; Z88.8 Allergy status to other drugs, medicaments and biological substances; Z79.899 Other long term (current) drug therapy

== ENCOUNTER → 2019-11-13 | Outpatient (CLI) | payer OTHER ==
[~2019-11-13] VITALS: Ht 177.8 cm; Wt 102.4 kg
[2019-11-13 13:02] VITALS: BP 142/93
--- NOTE | 2019-11-13 13:17 | NUR ---
Pain Clinic Assessment: 1. History of Osteoarthritis: Not Applicable History of Rheumatoid Arthritis: Not Applicable 2. Height: 5 ft. 10 in. 177.8 cm. Weight: 225.8 lb. oz. 102.422 kg. Patient's BMI: 32.4 3. Vital Signs: BP: 142/93 Pulse: 95 Resp: 14 Temp: 02 Sat: 96 ECG Mon: 4. Pain Intensity: 6 5. Fall Risk: Dizziness: N Needs help standing or walking: N Fallen in the last 3 months: N Fall risk comments: 6. Patient on Blood Thinner: None 7. History of Hypertension: Y 8. Opioid Therapy greater than 6 weeks: Y Opiate Contract Signed: 9. Risk Assessment Tool Provided: LOW-0 10. Functional Assessment Tool: 39/ 11. Recreational Drug Use: Never Drug Type: Tobacco Use: Never Smoker Tobacco Type: Amount or Packs/day: How Many Years: Alcohol Use: No Frequency: Quant:
--- NOTE | 2019-11-15 15:33 | HPC ---
[facility] [place] [address] PAIN MANAGEMENT CONSULTATION Name: JUNI SERNA Room #: REG MARISSAGonsalo Chamberlain#: [id number] Admission: 11/13/19 Attend Phys: Ila Gutiérrez Discharge: Date of : 53 Report #: [id number] THIS REPORT FOR: cc: Isreal Carcamo Bruce R. DO Hocker,Ila SERRANO ~ THIS REPORT FOR: //name// DATE OF SERVICE: 11/13/2019 CHIEF COMPLAINT: Chronic abdominal pain related to Crohn's disease and short gut syndrome. HISTORY OF PRESENT ILLNESS: This is a pleasant 64-year-old gentleman who returns to the pain clinic for refill of his medications. He does have intrathecal pump that does aid in his pain relief that he is experiencing some increased pain in his right abdomen where his intrathecal pump is placed. He feels that the rib area is touching the top of the pump. He is awaiting an appointment with the neurosurgeon's office to hopefully to reposition his intrathecal pump. In the meantime, he is having increased pain in this area as well as his ongoing chronic abdominal pain. Today, he is reporting a pain score of 6/10. He feels that his pain is exacerbated by changing positions and sitting in his recliner. The medications that he takes are beneficial. He is hopeful that once his pump has been repositioned, he will be able to wean off his oxycodone tablets as he had in the past and only take his intrathecal medicines. ALLERGIES: TRAMADOL, LORAZEPAM, COMPAZINE, CODEINE, NAPROXEN, FENTANYL, PROMETHAZINE, TORADOL, CLAFORAN AND LEVAQUIN. MEDICATIONS: Oxycodone 5 mg tablets p.r.n., Carafate, Flomax, levothyroxine, Zofran, vancomycin, TPN, Benadryl, isosorbide and metoprolol. PQRS: 1. He has degenerative osteoarthritis in multiple joints. He denies any rheumatoid arthritis. 2. Height is 5 feet 10 inches, weight is 225. BMI is 32. 3. Vital signs, blood pressure 142/93, pulse is 95, respirations 14, and oxygen sat is 96. 4. Pain score of 6/10. 5. Denies dizziness, does not need help walking or standing, has not fallen in the last 3 months. 6. The patient is not on any blood thinners, but does take medicine for hypertension. Opioid therapy is greater than 6 weeks. His risk assessment tool [address] [address] PAIN MANAGEMENT CONSULTATION Name: JUNI SERNA Room #: REG [facility]#: [id number] Admission: 11/13/19 Attend Phys: Ila Gutiérrez Discharge: Date of : 53 Report #: [id number] is low. Functional assessment is 39/70. 7. Recreational drug use, he denies. He is not a smoker and does not drink alcohol. According to the prescription monitoring system, the patient is filling appropriately. His last prescription was 10/09/2019. According to the CDC guidelines for his oral medications, his MME is 15 per day. PHYSICAL EXAMINATION: GENERAL: This is alert and orientated, pleasant 64-year-old who appears his stated age, placing his current pain score at 6/10 today. HEENT: Normocephalic, atraumatic. Extraocular eye muscles are intact. Mucous membranes are moist. ABDOMEN: Pain pump is in his right lower quadrant and does impinge on the lower right anterior portion of his ribs and it is tender. Multiple scars are present in his abdomen. MUSCULOSKELETAL: He moves from sitting to standing position without difficulty as well as ambulates without difficulty. He does have bilateral knee tenderness today. IMPRESSION: 1. Chronic intractable back pain. 2. Crohn's disease. 3. Diffuse arthropathy. 4. Abdominal pain. 5. Oral medications written under opioid agreement. 6. Management of intrathecal pump. PLAN: 1. We discussed treatment options with the patient today. We will refill his oxycodone 5 mg, #60 for today and 4-week release. These will be sent electronically by Dr. Nico Oseguera, who did collaborate care on this patient today. 2. I explained to the patient that I personally had called Dr. Monroy office to set up his appointment. I had taken the earliest appointment that was available, which is in December. I encouraged the patient to call their office to see if he may be moved up on a cancellation list. The patient verbalizes understanding. 3. The patient will return as needed. His next intrathecal pump refill will be in January, but hopefully his pump will be repositioned before then. <ELECTRONICALLY SIGNED> By: Ila Gutiérrez 11/15/19 1533 [id number] Ila Gutiérrez /sarah
== END ==
LOC: PAIN 06:57
DX: G89.4 Chronic pain syndrome (principal); K50.90 Crohn's disease, unspecified, without complications; M12.88 Other specific arthropathies, not elsewhere classified, other specified site; Z79.899 Other long term (current) drug therapy; Z88.6 Allergy status to analgesic agent; Z88.4 Allergy status to anesthetic agent; Z88.1 Allergy status to other antibiotic agents; Z88.5 Allergy status to narcotic agent; Z88.8 Allergy status to other drugs, medicaments and biological substances

== ENCOUNTER → 2019-12-14 | Outpatient (CLI) | payer OTHER ==
[~2019-12-14] VITALS: Ht 177.8 cm; Wt 104.4 kg
[2019-12-14 10:20] VITALS: BP 118/71
--- NOTE | 2019-12-14 10:28 | NUR ---
Pain Clinic Assessment: 1. History of Osteoarthritis: Not Applicable History of Rheumatoid Arthritis: Not Applicable 2. Height: 5 ft. 10 in. 177.8 cm. Weight: 230.2 lb. oz. 104.418 kg. Patient's BMI: 33.0 3. Vital Signs: BP: 118/71 Pulse: 87 Resp: 20 Temp: 02 Sat: 98 ECG Mon: 4. Pain Intensity: 5 5. Fall Risk: Dizziness: N Needs help standing or walking: N Fallen in the last 3 months: N Fall risk comments: 6. Patient on Blood Thinner: None 7. History of Hypertension: Y 8. Opioid Therapy greater than 6 weeks: Y Opiate Contract Signed: 9. Risk Assessment Tool Provided: LOW-0 10. Functional Assessment Tool: 39 11. Recreational Drug Use: Never Drug Type: Tobacco Use: Never Smoker Tobacco Type: Amount or Packs/day: How Many Years: Alcohol Use: No Frequency: Quant:
--- NOTE | 2019-12-14 15:25 | HPC ---
[facility] [address] [place] [address] PAIN MANAGEMENT CONSULTATION Name: JUNI SERNA Room #: REG JAQUELIN Bulmaro#: [id number] Admission: 12/14/19 Attend Phys: Ila Gutiérrez Discharge: Date of : 53 Report #: [id number] THIS REPORT FOR: cc: Isreal Carcamo Bruce R. DO Hocker,Ila SERRANO ~ DATE OF SERVICE: 12/14/2019 CHIEF COMPLAINT: Chronic abdominal pain related to Crohn's disease and short gut syndrome. HISTORY OF PRESENT ILLNESS: This is a very pleasant 64-year-old gentleman who returns to the pain clinic for refill of his medications. He is going to have his intrathecal pump moved in his abdomen next week by Dr. Alvino Monroy. It has been causing him increased pain rubbing on his rib and they are going to reposition this. He is in need of his oral medications prior to this surgery. The patient reports to me that his pain score is a 5/10 today, worse with activity and changing positions and as the day progresses, his pump rubs more against his ribs. He states he does not use his PTM as often as it is available. The patient states they will not be refilling his pump at the time of surgery, they will just be repositioning it. ALLERGIES: TRAMADOL, LORAZEPAM, COMPAZINE, CODEINE, NAPROXEN, FENTANYL, PROMETHAZINE, TORADOL, CLAFORAN, and LEVOTHYROXINE. CURRENT LIST OF MEDICATIONS: Oxycodone p.r.n., Carafate, Flomax, Synthroid, ondansetron, vancomycin, TPN, Benadryl, isosorbide and metoprolol. PQRS: 1. He does have joint pain, but no significant osteoarthritis and no rheumatoid arthritis. 2. Height is 5 feet 10 inches, weight is 230, BMI is 33. 3. Vital signs 118/71, pulse is 87, respirations 20, oxygen sat is 98, pain score 5/10. Denies dizziness, does not need help walking or standing, has not fallen in the last 3 months. He is not on any blood thinners, but does take medicine for hypertension. His opioid therapy is greater than 6 weeks; therefore, an opioid signed contract is on the chart. Risk assessment is low. Functional assessment is 39/70. 4. Recreational drug use, he denies. He is not a smoker and does not drink alcohol. According to the prescription monitoring system, the patient is filling appropriately. He is due to fill his medications today. There [place] [address] PAIN MANAGEMENT CONSULTATION Name: JUNI SERNA Room #: REG Gonsalo Chamberlain#: [id number] Admission: 12/14/19 Attend Phys: Ila Gutiérrez Discharge: Date of : 53 Report #: [id number] PHYSICAL EXAMINATION: GENERAL: This is a very pleasant and alert and orientated 64-year-old gentleman who appears his stated age, placing his pain score today at 5/10. HEENT: Normocephalic, atraumatic. Pupils equal, round and reactive. MUSCULOSKELETAL: His intrathecal pump is located in his right lower quadrant. It does impinge on the lower right rib. This is tender locally, but no redness and swelling. He moves from sitting to standing position without any difficulty. He does have multiple scars on his abdomen from previous surgeries. IMPRESSION: 1. Chronic intractable pain syndrome secondary to abdominal pain, short gut syndrome. 2. Crohn's disease. 3. Malabsorption issues requiring total parenteral nutrition daily. 4. Intrathecal pump for medication management. PLAN: 1. We discussed treatment options with the patient today. The patient did not realize he had a 4-week prescription at the pharmacy to be filled. The electronic system is new to our patients. We did call them today and it was indeed there. We will have them filled out today that we will send a prescription to be filled in 4 weeks for this patient since he is here present today. Dr. Oseguera will send this for oxycodone 5 mg b.i.d. #60 to release in 4 weeks. 2. I did interrogate his intrathecal pump to find his alarm date which is 01/28/2020. The patient does use his PTM very sparingly. I believe his medications will last until early February. This way he will have enough oral medications to take him through his next intrathecal pump refill. 3. The patient is scheduled for pump replacement by Dr. Alvino Monroy next week. The patient does not believe he will need any additional pain pills through this process. 4. The patient is seen in collaboration with Dr. Nico Oseguera. <ELECTRONICALLY SIGNED> By: Ila Gutiérrez 12/14/19 1525 [id number] Ila Gutiérrez /sarah
== END ==
LOC: PAIN 06:45
DX: G89.4 Chronic pain syndrome (principal); K50.90 Crohn's disease, unspecified, without complications; K90.9 Intestinal malabsorption, unspecified; R10.9 Unspecified abdominal pain; Z97.8 Presence of other specified devices

== ENCOUNTER → 2019-12-28 | Outpatient (CLI) | payer OTHER ==
[~2019-12-28] VITALS: Ht 177.8 cm; Wt 105.2 kg
--- NOTE | ~2019-12-28 | HPC ---
[facility] [place] [address] PAIN MANAGEMENT CONSULTATION Name: JUNI SERNA Room #: REG JAQUELIN Burgos.#: [id number] Admission: 12/28/19 Attend Phys: Nico Oseguera MD Discharge: Date of : 53 Report #: [id number] THIS REPORT FOR: cc: Isreal Carcamo,Isreal Max,Nico Garcia MD ~ CC: Isreal Oseguera DATE OF SERVICE: 12/28/2019 Followup visit for chronic pain related to Crohn's disease and short gut. The patient is back in the clinic today and has a new pump. A 40 mL pump was repositioned by Dr. Monroy to the left abdomen because of an impingement syndrome on the rib and costal margin. He is here today for wound check and also to discuss his postoperative pain. He reports his pain is a 7/10, very tender, more so than he remembers for the initial placement. He has noticed no discharge or increased redness. Edema around the new pump site however is pretty marked and uncomfortable for him. He is wearing loose fitting shirt. He is under an opioid agreement. In addition, I provided him small amounts of oxycodone as a supplement. His prior dose of oxycodone was extremely high. He now uses oxycodone only for occasional breakthrough and has been using for postop pain. I have agreed to provide him with another prescription for 60 tablets of oxycodone 5 mg and he will use that to get through to the next appointment in January when he needs a pump fill. PQRS: Negative for osteoarthritis. His BMI is 33.3. Blood pressure 140/92, heart rate 92, respirations 14, O2 sat is 97, pain intensity is 7/10. He is not a fall risk. Denies use of blood thinner, is positive for hypertension. He has been on opioids for some time and is on an opioid agreement. His opioid risk score of 0 suggesting low risk of addiction. His functional assessment score 39/70 and has been fairly steady for a number of weeks. He denies use of tobacco or alcohol. PHYSICAL EXAMINATION: GENERAL: He is pleasant, mildly anxious gentleman. VITAL SIGNS: As noted above. He moves independently from sitting to standing position. His gait is a nonantalgic. He has tenderness across the left upper quadrant and there is marked swelling around the pump. The incision is healing nicely. Steri-Strips in place with no evidence of infection. IMPRESSION: 1. Chronic abdominal pain related to Crohn's disease and short gut syndrome. 2. Management of intrathecal infusion pumps, status post pump replacement and [address] [address] PAIN MANAGEMENT CONSULTATION Name: JUNI SERNA Room #: REG [facility] Bulmaro#: [id number] Admission: 12/28/19 Attend Phys: Nico Oseguera MD Discharge: Date of : 53 Report #: [id number] revision. Medications were ordered for his pump refill in January and I have sent prescriptions off for him under terms of our agreement for 1 month. Followup visit planned in January. By: 1449 1501 Nico Oseguera MD /nt
[2019-12-28 13:27] VITALS: BP 140/92
--- NOTE | 2019-12-28 13:39 | NUR ---
Pain Clinic Assessment: 1. History of Osteoarthritis: Not Applicable History of Rheumatoid Arthritis: Not Applicable 2. Height: 5 ft. 10 in. 177.8 cm. Weight: 232.0 lb. oz. 105.235 kg. Patient's BMI: 33.3 3. Vital Signs: BP: 140/92 Pulse: 92 Resp: 14 Temp: 02 Sat: 97 ECG Mon: 4. Pain Intensity: 7 5. Fall Risk: Dizziness: N Needs help standing or walking: N Fallen in the last 3 months: N Fall risk comments: 6. Patient on Blood Thinner: None 7. History of Hypertension: Y 8. Opioid Therapy greater than 6 weeks: Y Opiate Contract Signed: 9. Risk Assessment Tool Provided: LOW-0 10. Functional Assessment Tool: 39/ 11. Recreational Drug Use: Never Drug Type: Tobacco Use: Never Smoker Tobacco Type: Amount or Packs/day: How Many Years: Alcohol Use: No Frequency: Quant:
== END ==
LOC: PAIN 06:48
DX: G89.29 Other chronic pain (principal)

== ENCOUNTER 2020-02-01 14:55 | Emergency (ER) | payer OTHER ==
[~2020-02-01] VITALS: Ht 177.8 cm; Wt 99.8 kg
[2020-02-01 16:10] VITALS: BP 141/89
== END 2020-02-01 16:20 | disposition home or self-care (01) ==
LOC: ER 14:55
DX: G89.29 Other chronic pain (principal); Z76.0 Encounter for issue of repeat prescription; Z79.899 Other long term (current) drug therapy; Z88.6 Allergy status to analgesic agent; Z88.8 Allergy status to other drugs, medicaments and biological substances; Z88.1 Allergy status to other antibiotic agents

== ENCOUNTER → 2020-03-21 | Outpatient (CLI) | payer OTHER ==
--- NOTE | 2020-02-20 18:17 | HPC ---
[facility] [place] [address] PAIN MANAGEMENT CONSULTATION Name: JUNI SERNA Room #: PRE JAQUELIN Burgos.#: [id number] Admission: Attend Phys: Nico Oseguera MD Discharge: Date of : 53 Report #: [id number] THIS REPORT FOR: cc: Isreal Carcamo,Isreal Max,Nico Garcia MD ~ CC: Isreal Oseguera DATE OF SERVICE: 02/01/2020 The patient was seen in the Emergency Room. The patient was seen today in the Emergency Room because he was unable to come to his scheduled appointment earlier this week and told the staff that he was experiencing fever, myalgias, aches and pains and upper respiratory tract symptoms. He was in the process of being evaluated for COVID-19. He was unable today to tell me the results of his testing and we took extreme precautions today during our performance of procedure. He has recently had his intrathecal pump removed on 12/21/[address] Alvino Monroy. Today in the Emergency Room, he feels better. His fever is no longer present. Temperature is 98.3. Pulse is 94, respirations 15, blood pressure 151/83, O2 sat remains a little low at 93. He is 5 feet 10 inches, 220 pounds. Pain score is 3. Moves independently from sitting to standing position, ambulates without difficulty. He is not a fall risk. Denies use of tobacco or alcohol. Examination of the abdomen reveals nicely healing wound from his pump replacement on 12/21/[address] Monroy's team. The incision has healed nicely. No evidence of infection. No swelling or edema or tenderness. IMPRESSION: 1. Chronic abdominal pain secondary to Crohn's disease. 2. Management of chronic pain with intrathecal infusion. 3. Refill and reprogramming. PROCEDURE: Skin was prepped with ChloraPrep. A 22-gauge non-coring needle advanced in the new pump. Old medication removed and discarded per protocol with the assistance of the Emergency Room nurse. Pump was then refilled with morphine 20 mg per mL. Reprogramming session was performed. Next refill is scheduled for 05/10/2020. Programming information [place] [address] PAIN MANAGEMENT CONSULTATION Name: JUNI SERNA Room #: [facility]#: [id number] Admission: Attend Phys: Nico Oseguera MD Discharge: Date of : 53 Report #: [id number] planned to see him back in the pain clinic at that time as needed. No medications were provided at today's visit. <ELECTRONICALLY SIGNED> By: Nico Oseguera MD 02/20/20 1817 [id number] 1716 Nico Oseguera MD /nt
[~2020-03-21] VITALS: Ht 177.8 cm; Wt 100.5 kg
[~2020-03-21] MED LIST changes: +SEROQUEL 25 MG25 MG PO; +VANCO1GM IV
[2020-03-21 09:39] VITALS: BP 162/93
--- NOTE | 2020-03-21 10:08 | NUR ---
Pain Clinic Assessment: 1. History of Osteoarthritis: NONE History of Rheumatoid Arthritis: DENIES 2. Height: 5 ft. 10 in. 177.8 cm. Weight: 221.6 lb. oz. 100.517 kg. Patient's BMI: 31.8 3. Vital Signs: BP: 162/93 Pulse: 79 Resp: 18 Temp: 02 Sat: 97 ECG Mon: 4. Pain Intensity: 0 5. Fall Risk: Dizziness: N Needs help standing or walking: N Fallen in the last 3 months: N Fall risk comments: 6. Patient on Blood Thinner: None 7. History of Hypertension: Y 8. Opioid Therapy greater than 6 weeks: Y Opiate Contract Signed: 03/21/20 9. Risk Assessment Tool Provided: LOW-0 10. Functional Assessment Tool: 11. Recreational Drug Use: Never Drug Type: Tobacco Use: Never Smoker Tobacco Type: Amount or Packs/day: How Many Years: Alcohol Use: No Frequency: Quant:
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
== END ==
LOC: PAIN 01-29 06:52
PROVIDERS: ATTEND Clinical Nurse Specialist Adult Health
DX: K50.90 Crohn's disease, unspecified, without complications (principal); Z88.5 Allergy status to narcotic agent; Z88.8 Allergy status to other drugs, medicaments and biological substances; Z79.899 Other long term (current) drug therapy

== ENCOUNTER → 2020-04-18 | Outpatient (CLI) | payer OTHER ==
[~2020-04-18] VITALS: Ht 177.8 cm; Wt 99.1 kg
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
[2020-04-18 10:43] VITALS: BP 140/94
--- NOTE | 2020-04-18 11:10 | NUR ---
Pain Clinic Assessment: 1. History of Osteoarthritis: NONE History of Rheumatoid Arthritis: DENIES 2. Height: 5 ft. 10 in. 177.8 cm. Weight: 218.4 lb. oz. 99.066 kg. Patient's BMI: 31.3 3. Vital Signs: BP: 140/94 Pulse: 91 Resp: 16 Temp: 02 Sat: 94 ECG Mon: 4. Pain Intensity: 0 5. Fall Risk: Dizziness: N Needs help standing or walking: N Fallen in the last 3 months: N Fall risk comments: 6. Patient on Blood Thinner: None 7. History of Hypertension: Y 8. Opioid Therapy greater than 6 weeks: Y Opiate Contract Signed: 03/21/20 9. Risk Assessment Tool Provided: LOW-0 10. Functional Assessment Tool: 11. Recreational Drug Use: Never Drug Type: Tobacco Use: Never Smoker Tobacco Type: Amount or Packs/day: How Many Years: Alcohol Use: No Frequency: Quant:
== END ==
LOC: PAIN 07:02
PROVIDERS: ATTEND Anesthesiology Pain Medicine
DX: G47.9 Sleep disorder, unspecified (principal); G89.29 Other chronic pain; K50.90 Crohn's disease, unspecified, without complications

== ENCOUNTER → 2020-05-20 | Outpatient (CLI) | payer OTHER ==
[~2020-05-20] VITALS: Ht 177.8 cm; Wt 94.8 kg
[2020-05-20 12:26] VITALS: BP 132/76
--- NOTE | 2020-05-20 12:27 | NUR ---
Pain Clinic Assessment: 1. History of Osteoarthritis: NONE History of Rheumatoid Arthritis: DENIES 2. Height: 5 ft. 10 in. 177.8 cm. Weight: 209.0 lb. oz. 94.802 kg. Patient's BMI: 30.0 3. Vital Signs: BP: 132/76 Pulse: 99 Resp: 16 Temp: 02 Sat: 94 ECG Mon: 4. Pain Intensity: 2-3 5. Fall Risk: Dizziness: N Needs help standing or walking: N Fallen in the last 3 months: N Fall risk comments: 6. Patient on Blood Thinner: None 7. History of Hypertension: Y 8. Opioid Therapy greater than 6 weeks: Y Opiate Contract Signed: 03/21/20 9. Risk Assessment Tool Provided: LOW-0 10. Functional Assessment Tool: 11. Recreational Drug Use: Never Drug Type: Tobacco Use: Never Smoker Tobacco Type: Amount or Packs/day: How Many Years: Alcohol Use: No Frequency: Quant:
--- NOTE | 2020-05-21 08:12 | HPC ---
[facility] [address] [place] [address] PAIN MANAGEMENT CONSULTATION Name: JUNI SERNA Room #: REG [facility].#: [id number] Admission: 05/20/20 Attend Phys: Ila Gutiérrez Discharge: Date of : 53 Report #: [id number] THIS REPORT FOR: cc: Shelby Florian MD, Kandice L. MD Hocker, Amanda CNS ~ CC: Nico Oseguera MD DATE OF SERVICE: 05/20/2020 CHIEF COMPLAINT: Chronic pain related to Crohn's disease and insomnia. HISTORY OF PRESENT ILLNESS: Today, the patient returns to the pain clinic for a refill of his opioid medications that he uses to help treat his ongoing abdominal pain that is chronic in nature as a result of his Crohn's disease. It is generally located in the right upper abdominal area, though it does move throughout his abdomen at times. It is a constant, aching pain that is worse with any activity and feels like the medication is beneficial as well as rest. He does use an intrathecal pump to aid in his pain relief as well. Today, he is needing refills of his medications prior to his pump refill. The patient does report he has not had a sleep study yet. He has been in contact with the tube bending machine operator. They have been playing phone tag per his report. We encouraged him to call by Wednesday again to try and get this scheduled. He does report that his primary care doctor prescribed him some new medication that has been helping him sleep at night. He is unsure of the name of this medication. ALLERGIES: TRAMADOL, LORAZEPAM, COMPAZINE, CODEINE, NAPROXEN, OFLOXACIN, FENTANYL, PROMETHAZINE, TORADOL CLAFORAN AND LEVAQUIN. CURRENT MEDICATIONS: Oxycodone 5 mg b.i.d. p.r.n., Carafate, Flomax, levothyroxine, vancomycin, Benadryl, isosorbide and metoprolol. PQRS: Negative for osteoarthritis or rheumatoid arthritis. Height is 5 feet 10 inches, weight is 209, BMI is 30. Vital signs; blood pressure 132/78, pulse is 99, respirations 16, oxygen sat is 94%. Pain score is 2-3. Fall risk. Denies dizziness, does not need help walking or standing, has not fallen in the last 3 months. He is not on any blood thinners, but does take medicine for hypertension. His opioid therapy is greater than 6 weeks; therefore, an opioid signed contract is on the chart. Risk assessment tool is low. Functional assessment is 22/70. Recreational drug use, he denies. He is not a smoker and does not drink alcohol. According to the prescription monitoring system, the patient is due to fill his medications. He is filling them in a timely fashion. His morphine [address] [address] PAIN MANAGEMENT CONSULTATION Name: JUNI SERNA [facility] [id number] Admission: 05/20/20 Attend Phys: Ila Gutiérrez Discharge: Date of : 53 Report #: [id number] milliequivalent according to the CDC guidelines for his oral medication is 15 MME. He does have morphine intrathecally as well. PHYSICAL EXAMINATION: GENERAL: This is alert and orientated 65-year-old gentleman who appears his stated age, placing his current pain score at 2-3 today. HEENT: Normocephalic, atraumatic. Extraocular eye muscles are intact. He has difficulty hearing today, having us repeat our questions. ABDOMEN: He has tenderness in his left upper quadrant. He has an intrathecal pump placed in his left lower quadrant of his abdomen. IMPRESSION: 1. Chronic abdominal pain related to Crohn's disease and short gut. 2. Posttraumatic stress disorder, having sleeping disturbances. 3. Management of intrathecal infusion pump. PLAN: 1. We discussed treatment options with the patient today. He finds his medications very beneficial in helping relieve some of his abdominal pain. We will have Dr. Nico Oseguera send his oxycodone 5 mg, #60 to his pharmacy for today and 4-week supply. 2. I encouraged the patient to call his tube bending machine operator, Dr. Monreal to try and set up his sleep study that was ordered almost a month ago by Dr. Nico Oseguera and encouraged him to bring the new medication that he has started, which he is finding helpful from his primary care doctor to his intrathecal pump refill appointment. 3. Appointment made for him to follow up with us for his refill on 05/30/2020. 4. The patient is seen in collaboration with Dr. Nico Oseguera. <ELECTRONICALLY SIGNED> By: Ila Gutiérrez 05/21/20 0812 [id number] Ila Gutiérrez /sarah
== END ==
LOC: PAIN 06:49
PROVIDERS: ATTEND Clinical Nurse Specialist Adult Health
DX: K50.90 Crohn's disease, unspecified, without complications (principal); G89.29 Other chronic pain; F43.12 Post-traumatic stress disorder, chronic; Z88.8 Allergy status to other drugs, medicaments and biological substances; Z79.899 Other long term (current) drug therapy

== ENCOUNTER → 2020-06-03 | Outpatient (CLI) | payer OTHER ==
[~2020-06-03] VITALS: Ht 177.8 cm; Wt 97.3 kg
[2020-06-03 13:55] VITALS: BP 135/82
--- NOTE | 2020-06-03 14:04 | NUR ---
Pain Clinic Assessment: 1. History of Osteoarthritis: NONE History of Rheumatoid Arthritis: DENIES 2. Height: 5 ft. 10 in. 177.8 cm. Weight: 214.6 lb. oz. 97.342 kg. Patient's BMI: 30.8 3. Vital Signs: BP: 135/82 Pulse: 93 Resp: 16 Temp: 02 Sat: 96 ECG Mon: 4. Pain Intensity: 3-4 5. Fall Risk: Dizziness: N Needs help standing or walking: N Fallen in the last 3 months: N Fall risk comments: 6. Patient on Blood Thinner: None 7. History of Hypertension: Y 8. Opioid Therapy greater than 6 weeks: Y Opiate Contract Signed: 03/21/20 9. Risk Assessment Tool Provided: LOW-0 10. Functional Assessment Tool: 11. Recreational Drug Use: Never Drug Type: Tobacco Use: Never Smoker Tobacco Type: Amount or Packs/day: How Many Years: Alcohol Use: No Frequency: Quant:
--- NOTE | 2020-06-06 11:44 | HPC ---
[facility] [place] [address] PAIN MANAGEMENT CONSULTATION Name: JUNI SERNA Room #: REG [facility].#: [id number] Admission: 06/03/20 Attend Phys: Nico Oseguera MD Discharge: Date of : 53 Report #: [id number] THIS REPORT FOR: cc: Shelby Florian MD, Kandice L. MD Morgan,Nico Garcia MD ~ CC: Shelby Oseguera DATE OF SERVICE: 06/03/2020 Follow up visit for refill and management of intrathecal infusion pump. The patient returns to pain clinic today for refill of his intrathecal pump. He is infusing morphine as monotherapy and doing well at 6 mg a day. There will be no change. He reports his summer has been fairly uneventful. He had been late for a prior pump refill. Simply forgot. PQRS is negative for osteoarthritis by his report. His BMI is 30.8. Vital Signs: Blood pressure 135/82, heart rate 93, respirations 16, O2 sat 96. Pain intensity today is 3-4, a stable for him. He is not a fall risk. He is not on blood thinners, but is treated for hypertension. All of his medications have been reviewed and reconciled. He is also on an opioid agreement, has in the past taken some oral opioids. His last prescription from our clinic was some time ago. He relies mostly on the medication from his intrathecal pump at this time. Risk assessment tool score is 0. Functional assessment score 26/70. He is fairly stoic in his review of his own assessment of activities. Denies use of tobacco and alcohol. PHYSICAL EXAMINATION: GENERAL: He is pleasant, alert, oriented. He is very loquacious today talking about jumping out of an airplane. 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 He plans on taking a parachuting jump soon. VITAL SIGNS: As noted. CHEST: Clear. CARDIAC: Rhythm is regular. ABDOMEN: Soft. Pump is in the left lower part of the abdomen, nontender. Scar is well healed. MUSCULOSKELETAL: He has pain across his low back and pain with forward flexion and extension. Denies leg pain at this time. IMPRESSION: 1. Chronic intractable pain. [address] [address] PAIN MANAGEMENT CONSULTATION Name: JUNI SERNA Room #: REG [facility].#: [id number] Admission: 06/03/20 Attend Phys: Nico Oseguera MD Discharge: Date of : 53 Report #: [id number] 2. History of Crohn's disease and insomnia. 3. Management of intrathecal pump with refill and reprogramming. PROCEDURE: Skin was prepped with ChloraPrep. A 22-gauge non-core needle advanced in pump. Old medication removed and discarded. Pump was then refilled with morphine. Reprogramming session was performed. The information was checked by myself and the nurse copy given. Apparently, the patient was discharged with a followup visit scheduled in July. <ELECTRONICALLY SIGNED> By: Nico Oseguera MD 06/06/20 1144 [id number] [id number] Nico Oseguera MD /nt
== END | disposition home or self-care (01) ==
LOC: PAIN 05-30 06:55
PROVIDERS: ATTEND Anesthesiology Pain Medicine
DX: Z45.1 Encounter for adjustment and management of infusion pump (principal); G89.29 Other chronic pain; K50.90 Crohn's disease, unspecified, without complications; G47.00 Insomnia, unspecified; Z79.891 Long term (current) use of opiate analgesic; Z98.890 Other specified postprocedural states; Z88.8 Allergy status to other drugs, medicaments and biological substances

== ENCOUNTER → 2020-08-01 | Outpatient (CLI) | payer OTHER ==
[~2020-08-01] VITALS: Ht 177.8 cm; Wt 96.1 kg
[2020-08-01 12:49] VITALS: BP 125/87
--- NOTE | 2020-08-01 13:12 | NUR ---
Pain Clinic Assessment: 1. History of Osteoarthritis: NONE History of Rheumatoid Arthritis: DENIES 2. Height: 5 ft. 10 in. 177.8 cm. Weight: 211.8 lb. oz. 96.072 kg. Patient's BMI: 30.4 3. Vital Signs: BP: 125/87 Pulse: 86 Resp: 16 Temp: 02 Sat: 97 ECG Mon: 4. Pain Intensity: 2-3 5. Fall Risk: Dizziness: N Needs help standing or walking: N Fallen in the last 3 months: N Fall risk comments: 6. Patient on Blood Thinner: None 7. History of Hypertension: Y 8. Opioid Therapy greater than 6 weeks: Y Opiate Contract Signed: 03/21/20 9. Risk Assessment Tool Provided: LOW-0 10. Functional Assessment Tool: 11. Recreational Drug Use: Never Drug Type: Tobacco Use: Never Smoker Tobacco Type: Amount or Packs/day: How Many Years: Alcohol Use: No Frequency: Quant:
--- NOTE | 2020-08-02 08:41 | HPC ---
[facility] [address] [place] [address] PAIN MANAGEMENT CONSULTATION Name: JUNI SERNA Room #: REG JAQUELIN [facility]#: [id number] Admission: 08/01/20 Attend Phys: Ila Gutiérrez Discharge: Date of : 53 Report #: [id number] CC: Ila Oseguera MD DATE OF SERVICE: 08/01/2020 CHIEF COMPLAINT: Chronic pain related to Crohn's disease and short gut. HISTORY OF PRESENT ILLNESS: The patient is returning to the pain clinic today for a refill of his medications that he uses to take as an adjunct treatment with his intrathecal pump for his chronic Crohn's disease, abdominal pain related to a short gut syndrome. Today, he is reporting his pain at a 2-3. He feels like it is very well managed with his current intrathecal pump settings as well as taking oxycodone twice daily. He reports he is not using his PTM very often as his other medicines typically control his pain. He reports that his pain is worse with increase in activity, but as long as he is resting and taking his medications, he denies problems. The patient does report he recently was out of town due to the passing of his [id number]; therefore, he missed his sleep study appointment with Dr. Fady Monreal. He is requesting the phone number, so he can reschedule this testing at the next month. The patient is also requesting refills of his IV Benadryl that Dr. Oseguera used to provide for him. It has been greater than one year since Dr. Oseguera has written this medication. ALLERGIES: TRAMADOL, LORAZEPAM, COMPAZINE, CODEINE, NAPROXEN, OFLOXACIN, FENTANYL, PROMETHAZINE, KETOROLAC, CLAFORAN and LEVAQUIN. MEDICATIONS: Oxycodone 5 mg b.i.d., Carafate, Flomax, levothyroxine, Zofran, vancomycin, isosorbide and metoprolol. PQRS: 1. The patient is negative for osteoarthritis per his report or rheumatoid arthritis. 2. Height is 5 feet 10 inches, weight is 211, BMI is 30. Vital signs 125/87, pulse is 86, respirations 16, oxygen sat is 97%. Pain score is 2 to 3. 3. Fall risk. Denies dizziness, does not need help walking or standing, has not fallen in the last 3 months. 4. The patient is not on any blood thinners, but does take medicine for hypertension. His opioid therapy is greater than 6 weeks; therefore, an opioid signed contract is on the chart. Risk assessment is low. Functional assessment is 26/70. 5. Recreational drug use, he denies. He is not a smoker and does not drink alcohol. According to the prescription monitoring system, the patient is filling appropriately in a timely fashion. He is past time to fill his oral medications. His morphine mEq for his oral opioids is 15 MME. PHYSICAL EXAMINATION: GENERAL: This is a pleasant and alert, orientated 65-year-old gentleman who appears his stated age, placing his current pain score today at 2-3. HEENT: Normocephalic, atraumatic. Extraocular eye muscles are intact. MUSCULOSKELETAL: The patient is experiencing several jerky sensations of his cervical spine looking to his left in the form of a tic several times throughout our visit. He moves independently from the sitting to standing position and ambulates without difficulty. He has pain in his lower back that is increased with forward flexion. ABDOMEN: Nontender. Pump in his lower left quadrant. He has well-healed surgical scars. IMPRESSION: 1. Chronic intractable pain. 2. History of Crohn's disease and short gut syndrome. 3. Insomnia. 4. Management of intrathecal pump and oral medications. PLAN: 1. We discussed treatment options with the patient today. The patient finds his oxycodone 5 mg, taking 1-2, very beneficial in helping reduce his pain along with his intrathecal pump medicine and rarely uses his PTM. We will schedule him back for his intrathecal pump refill at the end of August and have Dr. Nico Oseguera send electronically his oxycodone today, #60 for 2 months. At his visit for his refill, we will send an additional 2 months of medication; therefore, hopefully enabling him to not need an appointment until his next fill. 2. We did discuss the patient's request for IV Benadryl. I explained to him that is not a medication that our office typically prescribes for patients. I encouraged him to discuss this with his doctor that prescribes his vancomycin. I did discuss this with Dr. Nico Oseguera as well and he is agreeable that is not a medicine he feels comfortable prescribing a long-term basis. The patient is also experiencing several tics and benadyrl may worsen this. 3. I encouraged the patient to follow up with his sleep study and call Dr. Fady Monreal for another appointment. The patient states he will try to obtain an appointment prior to his intrathecal pump refill. The patient is seen today in collaboration with Dr. Nico Oseguera who did see the patient as well. <ELECTRONICALLY SIGNED> By: Ila Gutiérrez 08/02/20 0841 [id number] Ila Gutiérrez /nt
== END ==
LOC: PAIN 06:55
PROVIDERS: ATTEND Clinical Nurse Specialist Adult Health
DX: G89.4 Chronic pain syndrome (principal); K50.90 Crohn's disease, unspecified, without complications; Z79.899 Other long term (current) drug therapy

== ENCOUNTER → 2020-09-09 | Outpatient (CLI) | payer OTHER ==
[~2020-09-09] VITALS: Ht 177.8 cm; Wt 101.1 kg
[2020-09-09 12:40] VITALS: BP 148/96
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
== END | disposition home or self-care (01) ==
LOC: PAIN 06:49
PROVIDERS: ATTEND Anesthesiology Pain Medicine
DX: Z45.1 Encounter for adjustment and management of infusion pump (principal); G89.29 Other chronic pain; R10.9 Unspecified abdominal pain; K50.90 Crohn's disease, unspecified, without complications; I10 Essential (primary) hypertension; F43.10 Post-traumatic stress disorder, unspecified; Z98.890 Other specified postprocedural states; Z79.899 Other long term (current) drug therapy; Z79.891 Long term (current) use of opiate analgesic

== ENCOUNTER → 2020-11-25 | Outpatient (CLI) | payer OTHER ==
[~2020-11-25] MED LIST changes: +DULOXETINE HCL40 MG PO
== END ==
LOC: PAIN 07:03 → TELEPC 07:03 → PAIN 09:01
PROVIDERS: ATTEND Anesthesiology Pain Medicine
DX: K50.90 Crohn's disease, unspecified, without complications (principal); R10.9 Unspecified abdominal pain; Z79.891 Long term (current) use of opiate analgesic; I10 Essential (primary) hypertension; Z79.899 Other long term (current) drug therapy

== ENCOUNTER → 2021-01-27 | Outpatient (CLI) | payer OTHER ==
[~2021-01-27] VITALS: Ht 177.8 cm; Wt 102.3 kg
[2021-01-27 10:55] VITALS: BP 150/86
--- NOTE | 2021-01-27 11:13 | NUR ---
Pain Clinic Assessment: 1. History of Osteoarthritis: NONE History of Rheumatoid Arthritis: DENIES 2. Height: 5 ft. 10 in. 177.8 cm. Weight: 225.6 lb. oz. 102.332 kg. Patient's BMI: 32.4 3. Vital Signs: BP: 150/86 Pulse: 103 Resp: 14 Temp: 02 Sat: 95 ECG Mon: 4. Pain Intensity: 3-4 5. Fall Risk: Dizziness: N Needs help standing or walking: N Fallen in the last 3 months: N Fall risk comments: FELL OUT OF BED D/T NIGHTMARES 3 DAYS AGO 6. Patient on Blood Thinner: None 7. History of Hypertension: Y 8. Opioid Therapy greater than 6 weeks: Y Opiate Contract Signed: 03/21/20 9. Risk Assessment Tool Provided: LOW-0 10. Functional Assessment Tool: 11. Recreational Drug Use: Never Drug Type: Tobacco Use: Never Smoker Tobacco Type: Amount or Packs/day: How Many Years: Alcohol Use: No Frequency: Quant:
== END | disposition home or self-care (01) ==
LOC: PAIN 07:04
PROVIDERS: ATTEND Anesthesiology Pain Medicine
DX: Z45.1 Encounter for adjustment and management of infusion pump (principal); G89.29 Other chronic pain; R10.9 Unspecified abdominal pain; K91.2 Postsurgical malabsorption, not elsewhere classified; I10 Essential (primary) hypertension; Z98.890 Other specified postprocedural states; Z79.899 Other long term (current) drug therapy; Z79.891 Long term (current) use of opiate analgesic

== ENCOUNTER → 2021-03-27 | Outpatient (CLI) | payer OTHER ==
[~2021-03-27] VITALS: Ht 177.8 cm; Wt 105.7 kg
[2021-03-27 12:48] VITALS: BP 144/85
--- NOTE | 2021-03-27 12:51 | NUR ---
Pain Clinic Assessment: 1. History of Osteoarthritis: NONE History of Rheumatoid Arthritis: DENIES 2. Height: 5 ft. 10 in. 177.8 cm. Weight: 233.0 lb. oz. 105.688 kg. Patient's BMI: 33.4 3. Vital Signs: BP: 144/85 Pulse: 84 Resp: 16 Temp: 02 Sat: 96 ECG Mon: 4. Pain Intensity: 4 5. Fall Risk: Dizziness: N Needs help standing or walking: N Fallen in the last 3 months: N Fall risk comments: FELL OUT OF BED D/T NIGHTMARES 3 DAYS AGO 6. Patient on Blood Thinner: None 7. History of Hypertension: Y 8. Opioid Therapy greater than 6 weeks: Y Opiate Contract Signed: 03/21/20 9. Risk Assessment Tool Provided: LOW-0 10. Functional Assessment Tool: 11. Recreational Drug Use: Never Drug Type: Tobacco Use: Never Smoker Tobacco Type: Amount or Packs/day: How Many Years: Alcohol Use: No Frequency: Quant:
== END ==
LOC: PAIN 01-23 06:50
PROVIDERS: ATTEND Clinical Nurse Specialist Adult Health
DX: G89.4 Chronic pain syndrome (principal); I10 Essential (primary) hypertension; M10.9 Gout, unspecified; Z79.891 Long term (current) use of opiate analgesic; Z79.899 Other long term (current) drug therapy; Z88.8 Allergy status to other drugs, medicaments and biological substances; Z88.5 Allergy status to narcotic agent

== ENCOUNTER → 2021-06-12 | Outpatient (CLI) | payer OTHER ==
[~2021-06-12] VITALS: Ht 177.8 cm; Wt 43.1 kg
[2021-06-12 13:58] VITALS: BP 144/82
--- NOTE | 2021-06-12 14:23 | NUR ---
Pain Clinic Assessment: 1. History of Osteoarthritis: NONE History of Rheumatoid Arthritis: DENIES 2. Height: 5 ft. 10 in. 177.8 cm. Weight: 95.0 lb. oz. 43.092 kg. Patient's BMI: 13.6 3. Vital Signs: BP: 144/82 Pulse: 89 Resp: 14 Temp: 02 Sat: 95 ECG Mon: 4. Pain Intensity: 4 5. Fall Risk: Dizziness: N Needs help standing or walking: N Fallen in the last 3 months: N Fall risk comments: FELL OUT OF BED D/T NIGHTMARES 3 DAYS AGO 6. Patient on Blood Thinner: None 7. History of Hypertension: Y 8. Opioid Therapy greater than 6 weeks: Y Opiate Contract Signed: 03/21/20 9. Risk Assessment Tool Provided: LOW-0 10. Functional Assessment Tool: 11. Recreational Drug Use: Never Drug Type: Tobacco Use: Never Smoker Tobacco Type: Amount or Packs/day: How Many Years: Alcohol Use: No Frequency: Quant:
== END | disposition home or self-care (01) ==
LOC: PAIN 06-09 07:04
PROVIDERS: ATTEND Anesthesiology Pain Medicine
DX: Z45.1 Encounter for adjustment and management of infusion pump (principal); K91.2 Postsurgical malabsorption, not elsewhere classified; R10.9 Unspecified abdominal pain; G89.29 Other chronic pain; Z98.890 Other specified postprocedural states; Z79.899 Other long term (current) drug therapy; Z88.8 Allergy status to other drugs, medicaments and biological substances

== ENCOUNTER → 2021-08-25 | Outpatient (CLI) | payer OTHER ==
[~2021-08-25] VITALS: Ht 177.8 cm; Wt 108.5 kg
[~2021-08-25] MED LIST changes: +FUROSEMIDE 20 M20 M1 PO; +KLOR-CON 1010 MEQ PO
[2021-08-25 11:15] VITALS: BP 146/87
--- NOTE | 2021-08-25 11:26 | NUR ---
Pain Clinic Assessment: 1. History of Osteoarthritis: NONE History of Rheumatoid Arthritis: DENIES 2. Height: 5 ft. 10 in. 177.8 cm. Weight: 239.2 lb. oz. 108.501 kg. Patient's BMI: 34.3 3. Vital Signs: BP: 146/87 Pulse: 84 Resp: 16 Temp: 02 Sat: 96 ECG Mon: 4. Pain Intensity: 5 5. Fall Risk: Dizziness: N Needs help standing or walking: N Fallen in the last 3 months: N Fall risk comments: FELL OUT OF BED D/T NIGHTMARES 3 DAYS AGO 6. Patient on Blood Thinner: None 7. History of Hypertension: Y 8. Opioid Therapy greater than 6 weeks: Y Opiate Contract Signed: 03/21/20 9. Risk Assessment Tool Provided: LOW-0 10. Functional Assessment Tool: 11. Recreational Drug Use: Never Drug Type: Tobacco Use: Never Smoker Tobacco Type: Amount or Packs/day: How Many Years: Alcohol Use: No Frequency: Quant:
== END ==
LOC: PAIN 10:28
PROVIDERS: ATTEND Clinical Nurse Specialist Adult Health
DX: G89.29 Other chronic pain (principal); R10.9 Unspecified abdominal pain; F43.10 Post-traumatic stress disorder, unspecified; K90.9 Intestinal malabsorption, unspecified; Z88.8 Allergy status to other drugs, medicaments and biological substances; Z79.899 Other long term (current) drug therapy

== ENCOUNTER → 2021-11-26 | Outpatient (CLI) | payer OTHER ==
[~2021-11-26] VITALS: Ht 177.8 cm; Wt 97.0 kg
[2021-11-26 12:52] VITALS: BP 153/99
--- NOTE | 2021-11-26 13:07 | NUR ---
Pain Clinic Assessment: 1. History of Osteoarthritis: NONE History of Rheumatoid Arthritis: DENIES 2. Height: 5 ft. 10 in. 177.8 cm. Weight: 213.8 lb. oz. 96.979 kg. Patient's BMI: 30.7 3. Vital Signs: BP: 153/99 Pulse: 84 Resp: 20 Temp: 02 Sat: 98 ECG Mon: 4. Pain Intensity: 5 5. Fall Risk: Dizziness: N Needs help standing or walking: N Fallen in the last 3 months: Y Fall risk comments: FELL OUT OF BED D/T NIGHTMARES 3 DAYS AGO 6. Patient on Blood Thinner: None 7. History of Hypertension: Y 8. Opioid Therapy greater than 6 weeks: Y Opiate Contract Signed: 03/21/20 9. Risk Assessment Tool Provided: LOW-0 10. Functional Assessment Tool: 11. Recreational Drug Use: Never Drug Type: Tobacco Use: Never Smoker Tobacco Type: Amount or Packs/day: How Many Years: Alcohol Use: No Frequency: Quant:
== END | disposition home or self-care (01) ==
LOC: PAIN 07:04
PROVIDERS: ATTEND Anesthesiology Pain Medicine
DX: Z45.1 Encounter for adjustment and management of infusion pump (principal); G89.29 Other chronic pain; K91.2 Postsurgical malabsorption, not elsewhere classified; I10 Essential (primary) hypertension; Z79.899 Other long term (current) drug therapy; Z98.890 Other specified postprocedural states; Z88.8 Allergy status to other drugs, medicaments and biological substances